=== PATIENT | female | born 2000 | race Hispanic/Latino ===

== ENCOUNTER 2021-05-05 15:01 | Emergency (ER) | payer OTHER, SELFPAY ==
[2021-05-05] MEDS ORDERED: BENZONATATE 100 MG CAP PO ONE (16:19)
[2021-05-05 17:21] LABS: SARS-COV-2 RT PCR NEGATIVE (NEGATIVE)
--- NOTE | 2021-05-05 18:18 | ER ---
Nurse's Notes [facility] Name: Vandana Nicole Age: 20 yrs Sex: Female : 2000 Arrival Date: 05/05/2021 Time: 15:03 Bed 17 Private MD: Diagnosis: Acute pharyngitis, unspecified;Cough Presentation: 05/05 15:20 Chief complaint: Patient states: Dry cough, sneezing, sore throat, diarrhea starting kg Tuesday. Denies fever, vomiting. Coronavirus screen: Client denies travel out of the [place] in the last 14 days. At this time, unable to obtain information related to travel outside the [place] Client presents with at least one sign or symptom that may indicate coronavirus-19. Standard/surgical mask placed on the client. Provider contacted for isolation considerations. Ebola Screen: Patient negative for fever greater than or equal to 101.5 degrees Fahrenheit, and additional compatible Ebola Virus Disease symptoms Patient denies exposure to infectious person. Patient denies travel to an Ebola-affected area in the 21 days before illness onset. Initial Sepsis Screen: Does the patient meet any 2 criteria? No. Patient's initial sepsis screen is negative. Does the patient have a suspected source of infection? No. Patient's initial sepsis screen is negative. Risk Assessment: Do you want to hurt yourself or someone else? Patient reports no desire to harm self or others. Onset of symptoms was April 28, 2021. 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 - Social history:: Smoking status: Patient denies any tobacco usage or history of. Screenin:04 Abuse screen: Denies threats or abuse. Nutritional screening: No deficits noted. vg1 Tuberculosis screening: No symptoms or risk factors identified. Fall Risk No fall in past 12 months (0 pts). No secondary diagnosis (0 pts). No IV (0 pts). Ambulatory Aid- None/Bed Rest/Nurse Assist (0 pts). Gait- Normal/Bed Rest/Wheelchair (0 pts) Mental Status- Oriented to own ability (0 pts). Total Landis Fall Scale indicates No Risk (0-24 pts). Assessment: 16:03 General: Appears in no apparent distress. comfortable, Behavior is calm, cooperative. vg1 Pain: Denies pain. Neuro: Level of Consciousness is awake, alert, obeys commands, Oriented to person, place, time, situation. Cardiovascular: Patient's skin is warm and dry. Respiratory: Airway is patent Respiratory effort is even, unlabored, Breath sounds are clear bilaterally. GI: Patient currently denies diarrhea, nausea, vomiting. : No signs and/or symptoms were reported regarding the genitourinary system. EENT: Throat is pink. Derm: Skin is intact, is healthy with good turgor. Musculoskeletal: Circulation, motion, and sensation intact. 17:18 Reassessment: Patient appears in no apparent distress at this time. No changes from vg1 previously documented assessment. Patient and/or family updated on plan of care and expected duration. Pain level reassessed. Patient is alert, oriented x 3, equal unlabored respirations, skin warm/dry/pink. Vital Signs: 15:20 BP 119 / 77; Pulse 96; Resp 20; Temp 98.6(O); Pulse Ox 100% ; Weight 58.9 kg; Height 4 kg ft. 9 in. (144.78 cm); Pain 3/10; 16:04 BP 117 / 82; Pulse 72; Resp 16; Pulse Ox 99% ; vg1 17:00 BP 104 / 74; Pulse 78; Resp 16; Pulse Ox 100% ; vg1 15:20 Body Mass Index 28.10 (58.90 kg, 144.78 cm) kg ED Course: 15:03 Patient arrived in ED. am2 15:22 Triage completed. kg 15:34 Fernando Peterson PA is PHCP. cp 15:34 Hi Harris MD is Attending Physician. cp 15:51 Nessa Vee, KWAME is Primary Nurse. vg1 16:04 Patient has correct armband on for positive identification. Bed in low position. Call vg1 light in reach. Side rails up X 1. 16:05 Arm band placed on. vg1 18:02 No provider procedures requiring assistance completed. Patient did not have IV access vg1 during this emergency room visit. Administered Medications: 16:00 Drug: Tessalon Perle (benzonatate) 100 mg Route: PO; vg1 18:00 Follow up: Response: No adverse reaction vg1 Outcome: 17:33 Discharge ordered by . carla 18:02 Discharged to home ambulatory. vg1 18:02 Condition: stable 18:02 Discharge instructions given to patient, Instructed on discharge instructions, follow up and referral plans. medication usage, Demonstrated understanding of instructions, follow-up care, medications, Prescriptions given X 2. 18:02 Patient left the ED. vg1 Signatures: Fernando Peterson PA PA cp Moreno, Amanda am2 Nessa Vee, RN RN vg1 Chanelle Nieto RN RN kg
--- NOTE | 2021-05-05 18:18 | EDPHYS ---
Physician Documentation [facility] Name: Vandana Nicole Age: 20 yrs Sex: Female : 2000 Arrival Date: 05/05/2021 Time: 15:03 Bed 17 Private MD: ED Physician Hi Harris HPI: 05/05 15:30 This 20 yrs old Female presents to ER via Ambulatory with complaints of Cough, cp Sore Throat, Sneezing. 15:30 The patient or guardian reports cough, that is intermittent. Onset: The cp symptoms/episode began/occurred 7 day(s) ago. Severity of symptoms: in the emergency department the symptoms are unchanged, despite home interventions. Associated signs and symptoms: Pertinent positives: sore throat, cough, Pertinent negatives: diarrhea, fever, vomiting. 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 - Social history:: Smoking status: Patient denies any tobacco usage or history of. ROS: 15:35 Constitutional: Negative for body aches, chills, fever, poor PO intake. cp 15:35 Eyes: Negative for injury, pain, redness, and discharge. cp 15:35 ENT: Positive for sore throat, Negative for drainage from ear(s), ear pain, difficulty swallowing, difficulty handling secretions. 15:35 Respiratory: Positive for cough, Negative for shortness of breath, wheezing. 15:35 Abdomen/GI: Negative for abdominal pain, nausea, vomiting, and diarrhea. 15:35 Skin: Negative for rash. 15:35 Neuro: Negative for dizziness, headache. 15:35 All other systems are negative. Exam: 15:40 Constitutional: The patient appears in no acute distress, alert, awake, non-toxic, well cp developed, well nourished. 15:40 Head/Face: Normocephalic, atraumatic. cp 15:40 Eyes: Periorbital structures: appear normal, Conjunctiva: normal, no exudate, no injection, Sclera: no appreciated abnormality, Lids and lashes: appear normal, bilaterally. 15:40 ENT: External ear(s): are unremarkable, Ear canal(s): are normal, clear, TM's: dullness, bilaterally, Nose: is normal, Mouth: Lips: moist, Oral mucosa: moist, Posterior pharynx: Airway: no evidence of obstruction, patent, Tonsils: with erythema, no enlargement, no exudate, Uvula: midline, swelling, is not appreciated, erythema, that is moderate, exudate, is not appreciated. 15:40 Neck: ROM/movement: is normal, is supple, no meningismus, no nuchal rigidity. 15:40 Chest/axilla: Inspection: normal, Palpation: is normal, no crepitus, no tenderness. 15:40 Cardiovascular: Rate: normal. 15:40 Respiratory: the patient does not display signs of respiratory distress, Respirations: normal, no use of accessory muscles, no retractions, labored breathing, is not present, Breath sounds: are clear throughout, no decreased breath sounds, no stridor, no wheezing. 15:40 Abdomen/GI: Exam negative for discomfort, distension, guarding, Inspection: abdomen appears normal. 15:40 Skin: no rash present. Vital Signs: 15:20 BP 119 / 77; Pulse 96; Resp 20; Temp 98.6(O); Pulse Ox 100% ; Weight 58.9 kg; Height 4 kg ft. 9 in. (144.78 cm); Pain 3/10; 16:04 BP 117 / 82; Pulse 72; Resp 16; Pulse Ox 99% ; vg1 17:00 BP 104 / 74; Pulse 78; Resp 16; Pulse Ox 100% ; vg1 15:20 Body Mass Index 28.10 (58.90 kg, 144.78 cm) kg MDM: 15:38 Patient medically screened. cp 17:00 Differential Diagnosis: Bronchitis Influenza Pharyngitis Otitis Media Pneumonia. cp 17:33 Data reviewed: vital signs, nurses notes, lab test result(s), and as a result, I will cp discharge patient. 17:33 Counseling: I had a detailed discussion with the patient and/or guardian regarding: the cp historical points, exam findings, and any diagnostic results supporting the discharge/admit diagnosis, lab results, to return to the emergency department if symptoms worsen or persist or if there are any questions or concerns that arise at home. 05/05 15:21 Order name: Strep; Complete Time: 17:26 3 05/05 15:21 Order name: COVID-19 : Document "Date of Symptom Onset" if Symptomatic. [facility] 05/05 16:08 Order name: Throat Culture EDMS 05/05 17:21 Order name: COVID-19/FLU A+B; Complete Time: 17:26 EDMS Administered Medications: 16:00 Drug: Tessalon Perle (benzonatate) 100 mg Route: PO; vg1 18:00 Follow up: Response: No adverse reaction vg1 Disposition: 05/06 13:25 Co-signature as Attending Physician, Hi Harris MD. rn Disposition Summary: 05/05/21 17:33 Discharge Ordered Location: Home cp Problem: new cp Symptoms: have improved cp Condition: Stable cp Diagnosis - Acute pharyngitis, unspecified cp - Cough cp Followup: cp - With: Private Physician - When: 2 - 3 days - Reason: Worsening of condition Discharge Instructions: - Discharge Summary Sheet cp - Sore Throat cp - Cough, Adult cp Forms: - Medication Reconciliation Form cp - Thank You Letter cp - Antibiotic Education cp - Prescription Opioid Use cp Prescriptions: - Amoxicillin 875 mg Oral Tablet - take 1 tablet by ORAL route every 12 hours for 10 days; 20 tablet; Refills: 0, cp Product Selection Permitted - Tessalon Perles 100 mg Oral Capsule - take 1 capsule by ORAL route every 8 hours As needed; 15 capsule; Refills: 0, cp Product Selection Permitted Signatures: Dispatcher [employer] EDMS Hi Harris MD MD rn Page, Corey, PA PA cp Garcia, Victoria, RN RN vg1 Corrections: (The following items were deleted from the chart) 05/05 16:08 15:22 CORONAVIRUS ordered. EDMS EDMS 16:10 15:21 Influenza Screen (A \\T\\ B)+[id number] ordered. EDMS EDMS
[2021-05-07 01:16] VITALS: TEMP 98.6
[2021-05-07 01:20] VITALS: BP 104/74; O2SAT 100
== END 2021-05-05 18:02 | disposition home or self-care (01) ==
LOC: ER 15:01
DX: J02.9 Acute pharyngitis, unspecified (principal); Z20.822 Contact with and (suspected) exposure to COVID-19
CPT/HCPCS: 0240U; 87070; 87081